=== PATIENT | male | born 1990 | race Caucasian/White ===

== ENCOUNTER 2016-09-19 05:56 | Observation (INO) | payer OTHER ==
[2016-09-13 14:48] LABS: BASOPHILS % (AUTO) 0.5 % (0.0-2.0); EOSINOPHILS % (AUTO) 1.1 % (1.0-6.0); HEMATOCRIT 46.6 % (41-53); HEMOGLOBIN 15.3 g/dL (13.5-17.5); LYMPHOCYTES # (AUTO) 2.5 K/uL (1.0-4.8); LYMPHOCYTES % (AUTO) 28.6 % (22.0-44.0); MEAN CORPUSCULAR HEMOGLOBIN 28.9 pg (26.0-34.0); MEAN CORPUSCULAR HGB CONC 32.9 G/dL (31.0-37.0); MEAN CORPUSCULAR VOLUME 88 fL (80-100); MONOCYTES # (AUTO) 0.6 K/uL (0.1-1.0); MONOCYTES % (AUTO) 6.3 % (2.0-9.0); NEUTROPHILS # (AUTO) 5.6 K/uL (1.8-7.7); NEUTROPHILS % (AUTO) 63.5 % (40.0-70.0); PLATELET COUNT (AUTO) 247 K/uL (150-450); RED BLOOD CELL COUNT(AUTO) 5.31 MIL/uL (4.50-5.90); RED CELL DISTRIBUTION WIDTH 13.5 % (11.5-14.5); WHITE BLOOD COUNT (AUTO) 8.8 K/uL (4.5-11.0)
[2016-09-13 15:01] LABS: PROTHROMBIN TIME 10.2 SEC (9.4-11.6)
[2016-09-13 15:03] LABS: ANION GAP 6 mmol/L (8-16); CALCIUM, TOTAL 9.2 mg/dL (8.8-10.5); CARBON DIOXIDE 31 mmol/L (22-29); CHLORIDE 102 mmol/L (98-107); CREATININE 0.92 mg/dL (0.60-1.30); GLOMERULAR FILTR. RATE CALC > 60 mL/min (>60); POTASSIUM 3.7 mmol/L (3.5-5.1); SODIUM SERUM 139 mmol/L (136-145); UREA NITROGEN, BLOOD 11 mg/dL (7-18)
[2016-09-13 15:08] LABS: ALANINE AMINOTRANSFERASE 81 U/L (12-78); ALBUMIN 4.1 g/dL (3.4-5.0); ASPARTATE AMINOTRANSFERASE 37 U/L (15-37); BILIRUBIN,TOTAL 0.3 mg/dL (0.1-1.0); TOTAL PROTEIN, SERUM 8.3 g/dL (6.4-8.2)
[~2016-09-19] VITALS: Ht 185.4 cm; Wt 120.9 kg
[~2016-09-19 05:56] MED LIST: CYCL10 PO; CeFAZolin 2 GM/DEXTROSE 50 ML IV ONE; DEXAMETHASONE SOD PHOS 4 MG/ML VIAL IVP ONE; FentaNYL CITRATE-PF 100 MCG/2 ML VIAL IVP ONE; FentaNYL CITRATE-PF 250 MCG/5 ML VIAL IVP ONE; HYDROmorphone 2 MG/ML SYRINGE IVP ONE; IBUP-2070 PO; KETOROLAC TROMETHAMINE 60 MG/2 ML VIAL IM ONE; METOCLOPRAMIDE HCL 5 MG/ML 2 ML VIAL IVP ONE; MIDAZOLAM HCL 2 MG/2 ML VIAL IVP ONE; MORPHINE SULFATE/PF 0.5 MG/ML 10 ML AMP IVP ONE; ONDANSETRON HCL 4 MG/2 ML VIAL IVP ONE; PROPOFOL 1% 20 ML VIAL IVP ONE; RINGERS SOLUTION,LACTATED 1,000 ML IV ONE; SUCCINYLCHOLINE CHLORIDE 20 MG/ML 10 ML VIAL IVP ONE
[2016-09-19] MEDS ORDERED: RINGERS SOLUTION,LACTATED 1,000 ML IV ONE (06:00)
[2016-09-19] MEDS ORDERED: VANCOMYCIN HCL 1 GM/VIAL ONE (07:05)
[2016-09-19] MEDS ORDERED: BUPIVACAINE HCL/PF 0.5% 30 ML VIAL ONE (07:05)
[2016-09-19] MEDS ORDERED: DEXAMETHASONE SOD PHOS 4 MG/ML VIAL IVP PRN (07:15)
[2016-09-19] MEDS ORDERED: BENZOCAINE/MENTHOL LOZENGE [8 LOZENGES/PACKET] PO PRN (07:15)
[2016-09-19] MEDS ORDERED: ZOLPIDEM TARTRATE 10 MG TABLET PO PRN (07:15)
[2016-09-19] MEDS ORDERED: DiphenhydrAMINE HCL 50 MG/ML VIAL IVP PRN (07:15)
[2016-09-19] MEDS ORDERED: ACETAMINOPHEN 1000 MG/ISO-OSM 100 ML IV ONE (08:11)
[2016-09-19] MEDS ORDERED: MEPERIDINE-PF 25 MG/ML SYRINGE IVP PRN (08:15)
[2016-09-19] MEDS ORDERED: FentaNYL CITRATE-PF 100 MCG/2 ML VIAL IVP PRN (08:15)
[2016-09-19] MEDS ORDERED: HYDROmorphone 2 MG/ML SYRINGE IVP PRN ×2 (08:15→11:00)
[2016-09-19] MEDS ORDERED: CYCLOBENZAPRINE HCL 10 MG TABLET PO PRN (08:30)
[2016-09-19 10:05] VITALS: BP 122/77
[2016-09-19] MEDS: DOCUSATE SODIUM 100 MG CAPSULE PO SCH ×2 (12:18→20:58)
[2016-09-19] MEDS: OxyCODONE HCL/ACETAMINOPHEN 10-325 MG TABLET PO PRN ×2 (12:18→17:09)
[2016-09-19 14:05] VITALS: BP 124/59
[2016-09-19] MEDS: CYCLOBENZAPRINE HCL 10 MG TABLET PO SCH ×2 (15:53→20:58)
[2016-09-19] MEDS: INFLUENZA VIRUS VACCINE QVS 2016-17 (3YR+)/PF 60 MCG/0.5 ML SYRINGE IM ONE (16:45)
[2016-09-19 18:05] VITALS: BP 137/65
[2016-09-19 19:26] VITALS: BP 138/58
[2016-09-19] MEDS: OXYGEN THERAPY IH SCH (20:00)
[2016-09-19 23:25] VITALS: BP 130/60
[2016-09-20 04:23] VITALS: BP 116/76
[2016-09-20 07:54] VITALS: BP 123/62
[2016-09-20] MEDS: OXYGEN THERAPY IH SCH (08:00)
[2016-09-20] MEDS: DOCUSATE SODIUM 100 MG CAPSULE PO SCH (08:24)
[2016-09-20] MEDS: CYCLOBENZAPRINE HCL 10 MG TABLET PO SCH (08:24)
[2016-09-20] MEDS ORDERED: BISACODYL 5 MG EC TABLET PO SCH (09:00)
[2016-09-20] MEDS: INFLUENZA VIRUS VACCINE QVS 2016-17 (3YR+)/PF 60 MCG/0.5 ML SYRINGE IM ONE (11:51)
[2016-09-20 12:15] VITALS: BP 138/77
== END 2016-09-20 13:03 | disposition home or self-care (01) ==
LOC: 4E 05:56
PROVIDERS: ADMIT Hospitalist; ATTEND Orthopaedic Surgery Orthopaedic Surgery of the Spine
DX: M51.27 Other intervertebral disc displacement, lumbosacral region (principal); Z23 Encounter for immunization
CPT/HCPCS: 36415; 63047; 80053; 85025; 85610; 85730; 87081; 88300; 90471; 96374; 97161; 97166; 97535 ×2; G0238; G0378 ×2; J0131; J0330; J0690; J1100; J1170; J1885; J2250; J2274; J2405; J2704; J2765; J3010 ×2; J3370; J3490; J7120